=== PATIENT | male | born 1965 | race Caucasian/White ===

== ENCOUNTER 2018-02-20 09:15 | Outpatient (CLI) | payer BC, SELFPAY | END 2018-02-20 09:35 | PROVIDERS: PCP Physician Assistant Medical; Referring Provider Internal Medicine Interventional Cardiology; Visit Provider Internal Medicine Interventional Cardiology | DX: I48.91 Unspecified atrial fibrillation (principal); R00.1 Bradycardia, unspecified | CPT/HCPCS: 93005; 93010 ==

== ENCOUNTER 2018-07-03 07:42 | Day surgery (SDC) | payer BC, SELFPAY ==
--- NOTE | 2018-07-03 06:50 | W.COLOREPORT ---
Date of service: 07/03/18 Time of Service: 09:49 Colonoscopy Report Date of procedure: 07/03/18 Pre-op diagnosis general: Colon Cancer Screening Post-op diagnosis procedure note: other (polyps x2) Procedure: Colonoscopy with polypectomy by cold forceps Surgeon: Lucero Medina Anesthesia proc note operative: other (General/ ASA 2/ Elma Angel CRNA) Estimated blood loss (mL): 3 Pathology: other (descending polyp and sigmoid polyp) Complications: None Disposition: same day Indications: Mr. Sandhu is a pleasant 53 year old male seen in the office for a screening colonoscopy. He has no family history and denies any issues. Risks, benefits and complications have been reviewed. Complications include but are not limited to bleeding, pain, perforation, missed small lesion/polyp, sore throat, aspiration and adverse reaction to the medications. Questions were entertained and answered to their satisfaction and they wished to proceed. No guarantees were given or implied. Prep: Miralax/Dulcolax Procedure Start Time: :49 Procedure End Time: 10:27 Retraction Time: 24 minutes Findings: There were 2 sessile polyps. One in the descedning colon right at the splenic flexure and one in the sigmoid colon. Procedure Description: After informed consent was obtained the patient was taken to the procedure room and placed in a left decubitous position. Monitors were applied and a time out was done. The patients name, date of , procedure, allergies to medications and metal in their body was reviewed. The patient was then sedated. Once sedated and comfortable a rectal exam was done. External exam was normal. Internal exam revealed a normal sphincter tone and no palpable masses. The prostate was smooth. The scope was then introduced and retro-flexed. No internal hemorrhoids were identified. No polyps or masses were noted. The scope was then advanced to the cecum without difficulty. The TI and appendiceal orifice were identified. The prep was adequate. There was some bile stained mucus and some fiber that had to washed off with saline. 1 Liter of saline was used. The scope was then slowly retracted over 24 minutes back into the rectum. Polyps were removed in the descedning colon at the splenic flexure and in the distal sigmoid colon. The scope was removed and the patient was woken up and taken back to Same day surgery in stable condition. The patient tolerated the procedure well and there were no immediate complications. Follow up: The patient should follow up in 3-5 years unless they develop changes in bowel habits or other new gastrointestinal complaints.
--- NOTE | 2018-07-03 06:52 | W.PM.DSUDISC ---
Discharge Plan Disposition Patient Disposition: HOME Condition: Good Discharge Details Reason For Visit: Colon Cancer Screening Attending Provider: Lucero Medina Primary Care Provider: Óscar Patel Home Meds and New Rx's Prescriptions: Continued multivitamin 1 EACH capsule 1 tab PO DAILY RF: 0 Discontinued bisacodyl [Dulcolax (bisacodyl)] 5 mg tablet,delayed release (DR/EC) 5 mg PO ONCE Qty: 4 RF: 0 polyethylene glycol 3350 17 gram/dose powder 238 g PO ONCE Qty: 238 RF: 0 Discharge Instructions Instructions: Colonoscopy (DC), Colorectal Polyps (DC) Additional Instructions: Findings: 2 small polyps Follow up: 3-5 years Please call if you develop: fevers >101.5 Nausea or Vomiting Abdominal pain that is not transient DAY SURGERY UNIT POST COLONOSCOPY INSTRUCTIONS 1. Because there will be medication in your system for the next 24 hours, you may feel a little sleepy. Your coordination will be affected. Therefore: a. Do not drive or operate dangerous equipment for 24 hours. b. Do not drink alcohol beverages for 24 hours (not even beer). c. Plan to go home and rest for the day. 2. Generally there are no restrictions on your activity after a day or so has gone by, but you may feel a bit fatigued for a few days. 3 After you arrive home you may have a light meal and return to a normal diet as you can tolerate it without feeling sick to your stomach. 4. After surgery, you may feel pain or discomfort. This should be only transient, but if it persists please contact your doctor. 5. If there are any questions regarding the findings of your procedure, please feel free to contact your doctor. 6. If you are unable to contact your doctor with a problem, contact the hospital at [phone]. 7. Continue all your regular medications unless directed otherwise. I understand the above instructions and have no questions. Signature of Patient or Responsible Adult Escort Date/Time Name of Responsible Adult Escort Signature of Nurse Date/Time Activity:: Activity as Tolerated Diet:: As Tolerated Discharge Orders Discharge Orders: Discharge Order (Routine); Ordered 07/03/18 Ordered By: Lucero Medina DS: Diagnosis Discharge Diagnosis (1) S/P colonoscopy: Status: Acute (2) Colorectal polyps: Status: Acute
[2018-07-03 08:31] VITALS: BP 117/82; PULSE 73; RESP 16; TEMP 36.1; O2SAT 97
[2018-07-03] MEDS: Lactated Ringers 1,000 ML 80 ML IV (08:45)
--- NOTE | 2018-07-03 10:14 | BOWEL_PTH ---
PATIENT: Александр Sandhu LOC: [facility] U#:[id number] AGE/SX: 53/M ROOM: RE07/03/[address]: Lucero Medina MD : [id number] BED: DIS: 07/03/2018 SPEC #: [id number] RECD: 07/03/18 11:24 STATUS: SWATHI REQ #: [id number] KRUPA: 07/03/18 10:[address]: Lucero Medina DEPT: Surgical Specimen RECD BY: Maria Isabel Virgen ENTERED: 07/03/18 11:25 SP TYPE: Bowel OTHR DR: Óscar Patel DO Tissues: 1 - BIOPSY BOWEL 2 - BIOPSY BOWEL Procedures: GROSS AND MICRO LEVEL 4 Comments: [id number]
[2018-07-03 11:00] VITALS: BP 116/73; PULSE 68; RESP 16; TEMP 35.7; O2SAT 98
== END 2018-07-03 11:31 | disposition home or self-care (01) ==
LOC: SUR 07:42
PROVIDERS: PCP Family Medicine; Visit Provider Surgery
PROC: 0DJD8ZZ Inspection of Lower Intestinal Tract, Via Natural or Artificial Opening Endoscopic (ICD-10-PCS; CPT 45378; principal; 2018-07-03 09:00)
DX: Z12.11 Encounter for screening for malignant neoplasm of colon (principal); D12.4 Benign neoplasm of descending colon; Z80.0 Family history of malignant neoplasm of digestive organs
CPT/HCPCS: 45380; 88305

== ENCOUNTER 2019-01-18 11:30 | Emergency (ER) | payer BC, SELFPAY ==
[2019-01-18 11:34] VITALS: BP 128/74; PULSE 82; RESP 18; TEMP 36.6; O2SAT 97
--- NOTE | 2019-01-18 12:01 | W.ED.GENAD ---
Discharge Plan Disposition Patient Disposition: AGAINST MEDICAL ADVICE Condition: Stable Discharge Details Chief Complaint: Chest Pain Clinical Impression: Chest pain Primary Care Provider: Óscar Patel ED Provider: Danyel Andre Home Meds and New Rx's Prescriptions: No Action desonide 0.05 % cream 1 applic TP BID PRN (Reason: skin irritation) Qty: 60 RF: 3 cyclobenzaprine 7.5 mg tablet 7.5 mg PO TID PRN (Reason: muscle spasm) Qty: 90 RF: 0 multivitamin 1 EACH capsule 1 tab PO DAILY RF: 0 Discharge Instructions Instructions: Chest Pain (ED) Additional Instructions: Due to you choosing to leave before full examination is complete it is highly recommended that you follow-up with your primary care provider for further examination and testing as needed or warranted. If any abnormalities come up on blood work we will contact you and feel free to return to the emergency department immediately for any new or worsening symptoms or further concerns or if you change your mind and do desire complete work-up and evaluation of your chest pain. Referrals: Óscar Patel DO [Primary Care Provider] - (As soon as possible for further evaluation of your chest pressure/pain) Discharge Data Discharge Date/Time-TO BE ENTERED AT DEPARTURE: 01/18/19 12:19 Medical Decision Making Patient presenting to the emergency department for chief complaint of chest pressure. Patient reports that for the past week he has been under a lot of stress and today was at his counselor's office whom stated he looked pale and recommended he come into the emergency department. Patient denies any other associated symptoms, radiation of pain or exacerbating symptoms. He does state that he felt some dizziness yesterday morning but is completely resolved and gone away. Physical exam is unremarkable. Plan to check labs, EKG, and continue to monitor patient. EKG reviewed with Dr. Herman Tejeda and shows nonspecific T wave flattening in 1, aVL, and lead III but otherwise nondiagnostic EKG, does not meet STEMI criteria, sinus rhythm, 83, normal axis. Prior to full evaluation and discussing EKG with patient patient states that he wants to leave AGAINST MEDICAL ADVICE. Patient does not want to stay for results of blood work or repeat troponin and he states he feels okay. Thoroughly discussed with patient and significant other that were in the room that I cannot eliminate life-threatening possibilities of patient's chest discomfort and that leaving prior to full work-up may lead to both or disability if he decides to go home and wait for labs which she is requesting us to call him with any abnormalities. Patient signed out AGAINST MEDICAL ADVICE. Patient was fully competent, states understanding of risk factors, significant other was present, patient is not altered and is alert and oriented x4. Patient was encouraged to follow-up with primary care for further evaluation of his complaint if he chooses to perform this on an outpatient basis. HPI General Mode of arrival: ambulatory. Date/Time Provider Initiated Documentation: 01/18/19 11:41. Limitations to Documentation: no limitations. Information obtained by: patient, family and RN notes reviewed. History of Present Illness 53 year old M presents to the emergency department with the chief complaint of chest pressure , described as mild, with intensity rated at 5. Quality is described as other (pressure), and is localized to the chest. Patient reports no radiation. Patient started experiencing this week(s) (1) and it has been constant. No relieving factors improve symptom(s), No exacerbating factors reported . Patient did receive the following treatments prior to arrival, none Related Data Home Medications Medication Instructions Recorded Confirmed multivitamin 1 tab PO DAILY 07/18/17 01/18/19 desonide 0.05 % topical cream 1 applic TP BID PRN #60 gm 07/24/18 01/18/19 cyclobenzaprine 7.5 mg tablet 7.5 mg PO TID PRN #90 tab 11/27/18 01/18/19 Previous Rx's Medication Instructions Recorded desonide 0.05 % topical cream 1 applic TP BID PRN #60 gm 07/24/18 cyclobenzaprine 7.5 mg tablet 7.5 mg PO TID PRN #90 tab 11/27/18 Allergies Allergy/AdvReac Type Severity Reaction Status Date / Time fluconazole [From Diflucan] Allergy Intermediate Skin Rash Verified 01/18/19 11:40 Sulfa (Sulfonamide Allergy swells up Verified 01/18/19 11:40 Antibiotics) General Stated Complaint: Chest Pain JENNYFER: 2 Review of Systems Constitutional Constitutional: Denies chills, Reports difficulty sleeping and Denies fever(s) Cardiovascular Cardiovascular: Reports as per HPI, Reports chest pain, Denies chest pain with activity, Denies irregular heart rhythm, Denies palpitations and Denies dyspnea Respiratory Respiratory: Denies cough, Denies hemoptysis and Denies dyspnea Gastrointestinal Gastrointestinal: Denies abdominal pain, Denies nausea and Denies vomiting Psychiatric Psychiatric: Reports anxiety and Reports other (work stress) Endocrine Endocrine: Denies palpitations PFSH Medical History Atrial fibrillation with tachycardic ventricular rate (Acute) Colorectal polyps (Acute ~07/03/18) 07/04, one tubular adenoma, repeat in 5-10 years Hematospermia (Acute 05/06/17) Surgical History H/O vasectomy (Acute) History of back surgery (Acute ~2005) History of esophagogastroduodenoscopy (EGD) (Chronic) History of hand surgery (Acute) S/P ablation of atrial fibrillation (Acute) S/P colonoscopy (Acute ~07/03/18) Family History Mother Thyroid disease Father Heart disease takes eliquis Social History Smoking/Tobacco Use Status: Current every day Tobacco Type: e-cigarettes Smokeless tobacco user: dissolvable tobacco Alcohol Intake: current Alcohol Intake frequency: 0-2 drinks per day Alcohol type: wine Drug use: Occasionally Substance use type: marijuana Household members: spouse and family Housing: house Number of Children: 2 Communication Needs: None Education Level: college Do you need help understanding health information?: Never 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 Sexually active: Yes Do you think of yourself as: straight/heterosexual Current gender identity: male What is your relationship status?: Panel score (0-1 are the most socially isolated patients): 1 What type of physical activity do you participate in: none Special rhea needs: No Seatbelt use: always Drive intox or ride w/intox sprinkling truck driver: No Working smoke detector in home: Yes Fire extinguisher in home: Yes Carbon monox detector in home: Yes Do you feel safe at home: Yes Do you feel safe in your relationship?: Yes Exam Const General: cooperative, healthy appearing, comfortable, no acute distress, not diaphoretic and not ill appearing Nutritional Appearance: average body habitus Orientation: alert, awake and oriented x3 Limitations: mental status not altered Neck Neck: normal visual inspection, full ROM, trachea midline, supple and no anterior neck swelling Thyroid: thyroid normal Carotids: normal carotid upstroke and no bruits Chest Chest: normal inspection of the chest Resp Effort & Inspection: normal respiratory effort and able to speak in complete sentences Auscultation: clear to auscultation bilaterally Cardio Jugular venous pressure: no JVD Palpation: normal PMI Rate: regular rate Rhythm: regular rhythm Heart Sounds: S1 normal, S2 normal, no click, no gallops, no murmurs and no rubs Bruits: no abdominal aortic bruits and no carotid bruits Pulses: radial pulses present bilaterally 2+ and posterior tibial pulses present bilaterally 2+ GI Inspection: normal to inspection Palpation: soft, no aortic enlargement, no pulsatile masses and nontender Auscultation: normal bowel sounds Skin General skin exam: no rashes or lesions noted Neuro General: alert, awake, oriented x3, tone normal and moves all extremities Extrem General: normal capillary refill and no pedal edema Course Vital Signs Vital signs: Vital Signs Temperature 36.6 C 01/18/19 11:34 Pulse 82 01/18/19 11:34 Respiratory Rate 18 01/18/19 11:34 Blood Pressure 128/74 01/18/19 11:34 Pulse Oximetry 97 01/18/19 11:34 Temperature 36.6 C 01/18/19 11:34 Temperature Source Skin 01/18/19 11:34 Pulse 82 01/18/19 11:34 Respiratory Rate 18 01/18/19 11:34 Respiratory Effort Non-Labored 01/18/19 11:38 Blood Pressure 128/74 01/18/19 11:34 Blood Pressure Position Sitting 01/18/19 11:34 Pulse Oximetry 97 01/18/19 11:34 Oxygen Delivery Method Room Air 01/18/19 11:34 Oxygen Flow Rate 0 01/18/19 11:34 Pain Level 5 01/18/19 11:34
[2019-01-18 12:05] VITALS: RESP 18
[2019-01-18 12:19] VITALS: RESP 18
[2019-01-18 12:23] LABS: Abs Immature Grans 0.01 k/cumm (0.0-0.09); Absolute Basophil Count 0.02 k/cumm (0.0-0.2); Absolute Eosinophil Count 0.09 k/cumm (0.0-0.7); Absolute Monocyte Count 0.55 k/cumm (0.11-0.7); Absolute Neutrophil Count 4.14 k/cumm (1.2-6.7); Basophils % 0.3; Eosinophils % 1.4; HCT 43.5 % (40.0-50.0); HGB 14.8 g/dL (13.5-17.5); Immature Grans % 0.2; Lymphocytes % 26.1; Mean Corpuscular Hemoglobin 31.2 pg (27.0-33.0); Mean Corpuscular Volume 91.8 fL (80-95); Mean Platelet Volume 10.8 fL (8.0-11.0); Monocytes % 8.4; Neutrophils % 63.6; Platelet Count 164 x1000/uL (130-400); RBC 4.74 m/cumm (4.50-6.00); RBC Distribution Width 13.6 % (11.8-14.1); White Blood Cell Count 6.51 k/cumm (4.4-10.8)
[2019-01-18 12:39] LABS: ALT 82 U/L (16-63); AST 24 U/L (15-37); Albumin 4.1 g/dL (3.4-5.0); Alkaline Phosphatase 90 U/L (46-116); Anion Gap 9.6 mmol/L (3-11); BUN 14 mg/dL (7-18); Bilirubin, Total 0.4 mg/dL (0.2-1.0); CO2 27.4 mmol/L (21.0-32.0); CREATININE 1.06 mg/dL (0.70-1.30); Calcium 8.9 mg/dL (8.5-10.1); Chloride 104 mmol/L (98-107); Glucose 107 mg/dL (70-100); Magnesium 1.9 mg/dL (1.8-2.4); Potassium 3.9 mmol/L (3.5-5.1); Sodium 141 mmol/L (136-145); Total Protein 7.6 g/dL (6.4-8.2)
[2019-01-18 12:45] LABS: Troponin I < 0.05 ng/mL (0.00-0.06)
== END 2019-01-18 12:19 | disposition left against medical advice (07) ==
LOC: ER 12:27
PROVIDERS: Emergency Provider Nurse Practitioner Family; PCP Family Medicine
DX: R07.9 Chest pain, unspecified (principal); Z53.29 Procedure and treatment not carried out because of patient's decision for other reasons
CPT/HCPCS: 36415; 80053; 93005; 99284; 83735; 84484; 85025; 93010

== ENCOUNTER 2019-08-13 12:01 | Outpatient (CLI) | payer BC, SELFPAY ==
[2019-08-13 19:27] LABS: COVID-19 RT-PCR UVMMC Result Negative (Negative)
== END 2019-08-13 12:21 ==
PROVIDERS: PCP Family Medicine; Visit Provider Family Medicine
DX: R50.9 Fever, unspecified (principal)
CPT/HCPCS: U0003

== ENCOUNTER 2019-10-11 01:56 | Outpatient (CLI) | payer BC, SELFPAY ==
--- NOTE | 2019-10-11 14:45 | DI.US_ITS ---
EXAM: US RENAL CLINICAL HISTORY: Renal colic, r/o hydronephrosis n23 renal colic TECHNIQUE: Ultrasound performed using standard protocol. COMPARISON: US Cardiac from 03/09/2017 FINDINGS: Renal ultrasound was performed according to the usual protocol. Incidental note is made of increased hepatic echogenicity consistent with hepatic steatosis. The kidneys are normal in size and shape and there is no evidence of a renal mass, hydronephrosis, or nephrolithiasis. Pre and postvoid urinary bladder volume measurements are 592 cc and 73 cc respecti vely. Right and left ureteral jets are visualized and the urinary bladder is unremarkable in appeara nce. Prostatic volume is estimated at 29 cc. IMPRESSION: Negative renal ultrasound. Postvoid residual volume of the bladder 73 cc. DATA REPOSITORY:
== END 2019-10-11 02:16 ==
PROVIDERS: PCP Family Medicine; Visit Provider Family Medicine
DX: N23 Unspecified renal colic (principal); K76.0 Fatty (change of) liver, not elsewhere classified
CPT/HCPCS: 76770

== ENCOUNTER 2020-02-26 07:38 | Outpatient (CLI) | payer BC, SELFPAY ==
[2020-03-01 19:24] LABS: Patient Race White; SARS-CoV-2 RNA Undetected (Undetected); SARS-CoV-2 Specimen Source Nasal
== END 2020-02-26 07:58 ==
PROVIDERS: PCP Family Medicine; Visit Provider Family Medicine
DX: R53.81 Other malaise (principal)
CPT/HCPCS: U0003

== ENCOUNTER 2020-05-07 03:41 | Outpatient (CLI) | payer BC, SELFPAY ==
[2020-05-08 18:28] LABS: COVID-19 RT-PCR Result NEGATIVE (Negative)
== END 2020-05-07 04:01 ==
PROVIDERS: PCP Family Medicine; Visit Provider Family Medicine
DX: Z11.52 Encounter for screening for COVID-19 (principal)
CPT/HCPCS: U0003

== ENCOUNTER 2022-04-16 09:05 | Outpatient (CLI) | payer BC, SELFPAY ==
--- NOTE | 2022-04-16 09:00 | RT.EKG_ITS ---
APPROVED REPORT Exam: Resting ECG Reason for Exam: evaluation of cardiac rhythm Patient Location: O HR:105 bpm ECG Measurements Heart Rate 105 AXIS NH 179 P 63 QRSd 97 QRS 49 QT 327 T -4 QTc 433 Conclusion Sinus rhythm Low voltage, extremity leads...all extremity leads <0.5mV
== END 2022-04-16 09:06 | disposition home or self-care (01) ==
LOC: DI.CARD 09:06
PROVIDERS: PCP Family Medicine; Visit Provider Internal Medicine Cardiovascular Disease
DX: R00.2 Palpitations (principal); I48.91 Unspecified atrial fibrillation
CPT/HCPCS: 93010

== ENCOUNTER 2022-06-15 20:07 | Emergency (ER) | payer BC, SELFPAY ==
[2022-06-15 20:10] VITALS: BP 137/81; PULSE 97; RESP 20; TEMP 36.7; O2SAT 97
--- NOTE | 2022-06-15 20:30 | DI.CT_ITS ---
Exam(s) CT RENAL COLIC WO EXAM: CT RENAL COLIC WO CLINICAL HISTORY: left flank pain, r/o stone. TECHNIQUE: Imaging Protocol: Axial computed tomography images with coronal and sagittal reformatted images were created and reviewed. COMPARISON: No exams were available for comparison FINDINGS: ABDOMEN: Lung Bases: Normal where visualized. Liver: There is diffuse decreased attenuation of the liver consistent with fatty infiltration. No me asurable mass. The liver is enlarged. Gallbladder and biliary tract: No radiodense calculus or biliary ductal dilation. Pancreas: Normal density, no abnormal calcifications or inflammatory process. Spleen: Normal. Kidneys: Normal size, contour and axis.There is a 3 mm transverse by 7 mm long stone in the proximal left ureter causing mild hydronephrosis. No masses seen. Adrenal glands: No mass is seen. Lymph nodes: Within normal limits. Abdominal Aorta: Abdominal portion non-dilated. Mild atherosclerosis. PELVIS: Bladder:Symmetric distention, no gross wall thickening. Bowel: No obstruction or bowel wall thickening. No evidence of appendicitis. Peritoneal cavity: No ascites, collection or mesenteric inflammatory response. No free air. Reproductive organs: Unremarkable as visualized. Bones: Within normal limits. Soft Tissues: Within normal limits. IMPRESSION: 3 mm x 7 mm stone in the proximal left ureter causing mild hydronephrosis. RADIATION DOSE DELIVERED: Total DLP DATA REPOSITORY: All CT scans at this facility are submitted to the National Radiology Data Registry (NRDR) Dose Index Registry (DIR) with the [employer] (ACR). RADIATION OPTIMIZATION: All CT scans at this facility use at least one of these dose optimization te chniques: automated exposure control; mA and/or kV adjustment per patient size (includes targeted exa ms where dose is matched to clinical indication); or iterative reconstruction.
[2022-06-15 20:45] LABS: Abs Immature Grans 0.02 10^3/uL (0.0-0.06); Absolute Basophil Count 0.05 10^3/uL (0.0-0.2); Absolute Eosinophil Count 0.14 10^3/uL (0.0-0.7); Absolute Lymphocyte Count 2.73 10^3/uL (1.2-3.4); Absolute Monocyte Count 0.44 10^3/uL (0.1-0.8); Absolute Neutrophil Count 5.09 10^3/uL (1.2-6.7); Basophils % 0.6; Eosinophils % 1.7; HCT 42.9 % (40.0-50.0); HGB 14.9 g/dL (13.5-17.5); Immature Grans % 0.2; Lymphocytes % 32.2; MCH 31.8 pg (27.0-33.0); MCHC 34.7 % (32.0-36.0); MCV 92 fL (80-95); MPV 10.6 fL (8.0-11.0); Monocytes % 5.2; Neutrophils % 60.1; Platelet Count 153 10^3/uL (130-400); RBC 4.69 10^6/uL (4.36-5.78); RDW 12.9 % (11.8-14.1); WBC 8.47 10^3/uL (4.4-10.8)
[2022-06-15] MEDS: Ketorolac 15 MG/ML VIAL IVP (20:50)
[2022-06-15 21:01] LABS: ALT 108 U/L (16-63); AST 42 U/L (15-37); Albumin 4.2 g/dL (3.4-5.0); Alkaline Phosphatase 88 U/L (46-116); Anion Gap 9.7 mmol/L (3-11); BUN 18 mg/dL (7-18); Bilirubin, Total 0.4 mg/dL (0.2-1.0); CO2 26.3 mmol/L (21.0-32.0); CREATININE 1.3 mg/dL (0.70-1.30); Chloride 104 mmol/L (98-107); Estimated GFR 64.88 (mL/min/1.73m2); Glucose 134 mg/dL (74-106); Potassium 3.8 mmol/L (3.5-5.1); Sodium 140 mmol/L (136-145); Total Protein 7.7 g/dL (6.4-8.2)
[2022-06-15] MEDS: Normal Saline 1,000 ML 1000 ML IV (21:02)
[2022-06-15] MEDS: Tamsulosin 0.4 MG CAPCR PO ×2 (21:02→22:08)
--- NOTE | 2022-06-15 21:06 | ED.GENADUL_ITS ---
Discharge Plan Disposition Patient Disposition: Home Condition: Good Discharge Details Clinical Impression: Kidney stone on left side Primary Care Provider: Óscar Patel ED Provider: Satnam Granger Home Meds and New Rx's Prescriptions: New ketorolac 10 mg tablet 10 mg PO TID PRN5 Days Qty: 20 0RF tamsulosin [Flomax] 0.4 mg capsule 0.4 mg PO DAILY Qty: 7 0RF No Action multivitamin 1 EACH capsule 1 tab PO DAILY Discharge Instructions Instructions: Kidney Stones (ED) Additional Instructions: At this time you have a 3 x 7 kidney stone. Please continue to drink plenty of fluids, stay well-hydrated, please take the Flomax and the Toradol as directed. They have been sent to your pharmacy on file. You can also take 1000 mg of Tylenol every 6 hours as needed for pain. Please take the Zofran that has been given to you as needed for nausea. Please take the Fayette tablets/pain medication only as needed for breakthrough pain. Please continue to strain your urine to look for the stone. If you notice that the stone still has not passed over the next 3 to 4 days, you may need prompt reassessment and blood work to evaluate your kidney function. If you notice any worsening of your symptoms, or any new symptoms such as vomiting, diarrhea, fever, chills, shortness of breath, chest pain, numbness, weakness, or fainting , please return immediately to the emergency department for reevaluation. Please follow up with your primary care provider as soon as possible for reassessment and reevaluation. As always, it was a pleasure participating in your medical care today. Referrals: Óscar Patel DO [Primary Care Provider] - Medical Decision Making 57-year-old male with a past medical history of atrial fibrillation status post ablation, not currently on any anticoagulants, who presents today for evaluation of left flank pain. Patient states that symptoms began about 2 hours ago. Pain eventually worsened to the point where it caused nausea and vomiting. It seems to come and go in severity. He denies any fever or chills. No personal history of kidney stones. He denies any numbness or tingling. No hematuria. Pain is localized in the left flank. No radiation to the genitals a t this point. No previous abdominal surgeries otherwise. No other complaints at this time. Patient has not taken any medications for the pain. Exam demonstrates a well-appearing male, in no flank or CVA tenderness, no reproducible abdominal tenderness, no genital tenderness. Patient symptoms are concerning for urolithiasis. We will treat with Toradol and Flomax, we will get a CAT scan to evaluate for stone, monitor closely and reassess. 10:30 PM Laboratory work-up has returned, no white count bandemia or left shift, electrolytes and renal function notably stable. Urinalysis shows blood but no evidence of infection. CT scan shows a 7 x 3 mm stone, with mild left hydronephrosis. On reassessment patient is feeling much better but still has mild ache on the left. Flomax Toradol was given as well as Zofran. Patient is able to tolerate p.o. Discussed options of admission versus discharge with close follow-up or return if worsening symptoms, at this time patient notably elects for continued home treatment. He does not want to be admitted currently. Patient will be discharged home with a small bottle of Fayette, Zofran, Flomax for home use. Recommend close follow-up with his PCP for reassessment. Discussed red flags which would be concerning for worsening obstruction or failure to pass. is at bedside. I have extensively reviewed the treatment plan and discharge instructions with the patient and their family. I have addressed all patient concerns at this time. The patient and family was made aware of what symptoms to monitor for that would warrant a return to the emergency department. Discussed the plan with the patient and family, they demonstrate verbal understanding and agreement with our assessment and plan at this time. The documentation in this chart was dictated using [employer] dictation software. Please excuse any dictation errors. FINDINGS: Liver: Hepatomegaly and diffuse fatty infiltration. No mass. Gallbladder and bile ducts: Normal. No calcified stones. No ductal dilation. Pancreas: Normal. No ductal dilation. Spleen: Normal. No splenomegaly. Adrenal glands: Normal. No mass. Kidneys and ureters: Left UPJ calculus measuring 7x3 mm with mild left hydronephrosis coronal image 49 Stomach and bowel: Unremarkable. No obstruction. No mucosal thickening. Appendix: No evidence of appendicitis. Intraperitoneal space: Unremarkable. No free air. No significant fluid collection. Vasculature: Unremarkable. No abdominal aortic aneurysm. Lymph nodes: Unremarkable. No enlarged lymph nodes. Urinary bladder: Unremarkable as visualized. Reproductive: Unremarkable as visualized. Bones/joints: Unremarkable. No acute fracture. Soft tissues: Tiny fat containing periumbilical hernia. IMPRESSION: Mild left obstructive uropathy secondary to a left UPJ calculus measuring 7 x 3 mm Thank you for allowing us to participate in the care of your patient. Dictated and Authenticated by: Michael Giraldo MD 06/15/2022 9:27 PM Eastern Time ([place] & [place]) HPI General Date/Time Provider Initiated Documentation: 06/15/22 20:18 . HPI Narrative: 57-year-old male with a past medical history of atrial fibrillation status post ablation, not currently on any anticoagulants, who presents today for evaluation of left flank pain. Patient states that symptoms began about 2 hours ago. Pain eventually worsened to the point where it caused nausea and vomiting. It seems to come and go in severity. He denies any fever or chills. No personal history of kidney stones. He denies any numbness or tingling. No hematuria. Pain is localized in the left flank. No radiation to the genitals at this point. No previous abdominal surgeries otherwise. No other complaints at this time. Patient has not taken any medications for the pain. Related Data Home Medications Medication Instructions Recorded Confirmed multivitamin 1 tab PO DAILY 07/18/17 04/16/22 ketorolac 10 mg tablet 10 mg PO TID PRN 5 days #20 tabs 06/15/22 tamsulosin 0.4 mg capsule (Flomax) 0.4 mg PO DAILY #7 caps 06/15/22 Previous Rx's Medication Instructions Recorded ketorolac 10 mg tablet 10 mg PO TID PRN 5 days #20 tabs 06/15/22 tamsulosin 0.4 mg capsule (Flomax) 0.4 mg PO DAILY #7 caps 06/15/22 Allergies Allergy/AdvReac Type Severity Reaction Status Date / Time fluconazole [From Diflucan] Allergy Intermediate Skin Rash Verified 04/16/22 10:02 Sulfa (Sulfonamide Allergy swells up Verified 04/16/22 10:02 Antibiotics) General Stated Complaint: FlankPain JENNYFER: 3 Review of Systems All systems reviewed & are unremarkable except as noted in HPI and below PFSH All Active Problems (Updated 06/15/22 @ 22:33 by Satnam Granger DO) Kidney stone on left side (Acute) Intertrigo (Acute) Cellulitis (Acute) Blepharitis (Chronic) Colorectal polyps (Acute ~07/03/18) 07/04, one tubular adenoma, repeat in 5-10 years Obstructive sleep apnea hypopnea, mild (Chronic ~10/2016) perfers oral appliance vs C-PAP Atrial fibrillation (Chronic ~02/2017) Dr. 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 Garcia data capture clerk Heart palpitations (Chronic) Dr. Garcia data capture clerk S/P colonoscopy (Acute ~07/03/18) Hematospermia (Acute 05/06/17) Medical History (Updated 06/15/22 @ 22:33 by Satnam Granger DO) Atrial fibrillation with tachycardic ventricular rate Surgical History H/O vasectomy History of back surgery (~2005) History of esophagogastroduodenoscopy (EGD) History of hand surgery S/P ablation of atrial fibrillation (~01/2018) Family History Mother Thyroid disease Father Heart disease takes eliquis Social History Smoking/Tobacco Use Status: Current every day Tobacco Type: e-cigarettes Smokeless tobacco user: dissolvable tobacco Smoking risk assessment performed?: Yes Alcohol Intake: current Alcohol Intake frequency: 0-2 drinks per day Alcohol type: wine Drug use: Occasionally Substance use type: marijuana Household members: spouse and family Housing: house Number of Children: 2 Communication Needs: None Education Level: college Do you need help understanding health information?: Never 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 Sexually active: Yes Do you think of yourself as: straight/heterosexual Current gender identity: male What is your relationship status?: Panel score (0-1 are the most socially isolated patients): 1 What type of physical activity do you participate in: none Special rhea needs: No Seatbelt use: always Drive intox or ride w/intox 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 3.ENT: Atraumatic external nose and ears. Moist MM. Neck: Symmetric, trachea midline, No thyromegaly. 4.CVS: +S1/S2, No murmurs or gallops. Peripheral pulses 2+ and equal in all extremities. Brisk capillary refill in all extremities. 5.RESP: Unlabored respiratory effort. Clear to auscultation bilaterally. No wheezes rales or rhonchi 6.GI: Soft, Nontender/Nondistended, No hepatosplenomegaly. No guarding or rebound. No pain to McBurney's point, negative Anna sign, no CVA tenderness. No genital pain or tenderness on palpation. 7.MSK: Normocephalic/Atraumatic, Extremities w/o deformity or ttp No cyanosis or clubbing, Normal movement of all extremities 8.Skin: Warm, Dry. No rashes or lesions. 9.Neuro: call center nurse II-XII grossly intact. Sensation grossly intact, no focal n eurologic deficits. 10.Psych: (AAO) x3. Appropriate mood and affect Course Vital Signs Vital signs: Vital Signs Temperature 36.7 C 06/15/22 20:10 Pulse 97 H 06/15/22 20:10 Respiratory Rate 20 06/15/22 20:10 Blood Pressure 137/81 06/15/22 20:10 Pulse Oximetry 97 06/15/22 20:10 Temperature 36.7 C 06/15/22 20:10 Temperature Source Oral 06/15/22 20:10 Pulse 97 H 06/15/22 20:10 Respiratory Rate 20 06/15/22 20:10 Blood Pressure 137/81 06/15/22 20:10 Blood Pressure Position Sitting 06/15/22 20:10 Pulse Oximetry 97 06/15/22 20:10 Oxygen Delivery Method Room Air 06/15/22 20:10 Oxygen Flow Rate 0 06/15/22 20:10 Pain Level 2 06/15/22 20:10 Lab/Test Results Lab/Test Results: Laboratory Tests Range/Units 06/15/22 20:30 WBC (4.4-10.8) 10^3/uL 8.47 RBC (4.36-5.78) 10^6/uL 4.69 Hgb (13.5-17.5) g/dL 14.9 Hct (40.0-50.0) % 42.9 MCV (80-95) fL 92 MCH (27.0-33.0) pg 31.8 MCHC (32.0-36.0) % 34.7 RDW (11.8-14.1) % 12.9 Plt Count (130-400) 10^3/uL 153 MPV (8.0-11.0) fL 10.6 Immature Gran % 0.2 Neutrophils % 60.1 Lymphocytes % 32.2 Monocytes % 5.2 Eosinophils % 1.7 Basophils % 0.6 Nucleated RBC % (0.0-0.3) % 0.0 Absolute Neutrophils (1.2-6.7) 10^3/uL 5.09 Absolute Lymphocytes (1.2-3.4) 10^3/uL 2.73 Absolute Monocytes (0.1-0.8) 10^3/uL 0.44 Absolute Eosinophils (0.0-0.7) 10^3/uL 0.14 Absolute Basophils (0.0-0.2) 10^3/uL 0.05
[2022-06-15] MEDS: Ondansetron 4 MG/2 ML VIAL IVP (21:26)
--- NOTE | 2022-06-15 21:27 | DI.VRAD_ITS ---
PROCEDURE INFORMATION: Exam: CT Abdomen And Pelvis Without Contrast Exam date and time: 06/15/2022 9:15 PM Age: 57 years old Clinical indication: Other: Left flank pain, R/O stone TECHNIQUE: Imaging protocol: Computed tomography of the abdomen and pelvis without contrast. Radiation optimization: All CT scans at this facility use at least one of these dose optimization techniques: automated exposure control; mA and/or kV adjustment per patient size (includes targeted exams where dose is matched to clinical indication); or iterative reconstruction. COMPARISON: US RENAL 10/11/2019 3:08 PM FINDINGS: Liver: Hepatomegaly and diffuse fatty infiltration. No mass. Gallbladder and bile ducts: Normal. No calcified stones. No ductal dilation. Pancreas: Normal. No ductal dilation. Spleen: Normal. No splenomegaly. Adrenal glands: Normal. No mass. Kidneys and ureters: Left UPJ calculus measuring 7x3 mm with mild left hydronephrosis coronal image 49 Stomach and bowel: Unremarkable. No obstruction. No mucosal thickening. Appendix: No evidence of appendicitis. Intraperitoneal space: Unremarkable. No free air. No significant fluid collection. Vasculature: Unremarkable. No abdominal aortic aneurysm. Lymph nodes: Unremarkable. No enlarged lymph nodes. Urinary bladder: Unremarkable as visualized. Reproductive: Unremarkable as visualized. Bones/joints: Unremarkable. No acute fracture. Soft tissues: Tiny fat containing periumbilical hernia. IMPRESSION: Mild left obstructive uropathy secondary to a left UPJ calculus measuring 7 x 3 mm Dictated and Authenticated by: Michael Giraldo MD. Ordering:ADOLPH Hay MD
[2022-06-15 21:42] LABS: Bilirubin Negative (Negative); Blood Large (Negative); Clarity Clear (Clear); Glucose Negative (Negative); Ketones Negative (Negative); Leukocyte Esterase Negative (Negative); Nitrite Negative (Negative); Specific Gravity >= 1.030 (1.005-1.025); Urobilinogen 0.2 mg/dL (Up to 0.2); pH 5.5 (5-8)
[2022-06-15 21:55] LABS: Bacteria Negative HPF (Negative); C & S Indicated? No; Casts Negative LPF (Negative); Crystals Negative HPF (Negative); Epithelial Cells Few HPF (Negative); Mucus Negative (Negative); Other Cells Negative (Negative); RBC 20-50 HPF (0-2); WBC 0-2 HPF (0-5)
[2022-06-15] MEDS: Ondansetron O.D.T. 4 MG TABEF, 3 TABS/BTL PO (22:42)
[2022-06-15 22:52] VITALS: PULSE 78; RESP 20
== END 2022-06-15 22:53 | disposition home or self-care (01) ==
PROVIDERS: Emergency Provider Student in an Organized Health Care Education/Training Program; PCP Family Medicine
DX: N13.2 Hydronephrosis with renal and ureteral calculous obstruction (principal); I48.91 Unspecified atrial fibrillation
CPT/HCPCS: 36415; 80053; 96361; 96374; 96375; 99284; 74176; 81003; 81015; 85025; J1885; J2405

== ENCOUNTER 2023-01-31 13:00 | Outpatient (REF) | payer BC, SELFPAY ==
--- NOTE | 2023-01-31 11:50 | TONG_PTH ---
PATIENT: Александр Sandhu LOC: [facility] U#:[id number] AGE/SX: 57/M ROOM: RE01/31/[address]: Agata Ruff : 1965 BED: DIS: 01/31/2023 SPEC #: [id number] RECD: 01/31/23 17:31 STATUS: SWATHI RELeeroy #: [id number] KRUPA: 01/31/23 11:[address]: Agata Ruff DEPT: Surgical Specimen RECD BY: Lissett Suero ENTERED: 01/31/23 17:32 SP TYPE: JOEY LEON DR: Óscar Patel DO Tissues: 1 - TONGUE BIOPSY Procedures: GROSS AND MICRO LEVEL 4 SPECIAL STAIN 1 Comments: [id number]
== END 2023-01-31 13:01 | disposition home or self-care (01) ==
LOC: LBN 13:00
PROVIDERS: PCP Family Medicine; Visit Provider Registered Nurse Maternal Newborn
DX: R23.4 Changes in skin texture (principal); B37.0 Candidal stomatitis
CPT/HCPCS: 88305; 88312

== ENCOUNTER 2023-04-30 11:50 | Emergency (ER) | payer BC, SELFPAY ==
--- NOTE | 2023-04-30 11:57 | W.ED.GENAD ---
HPI General JENNYFER: 3 Date/Time Provider Initiated Documentation: 04/30/23 11:57. HPI Narrative: MDM This is an overall very well-appearing normothermic and not tachycardic 58-year-old male with left flank pain, history of ureterolithiasis and presentation concerning for recurrent ureterolithiasis. Patient symptoms began after coughing so rib fracture is also in the differential. No chest pain to suggest ACS. Patient did vomit once last night but in the absence of chest pain my suspicion for esophageal rupture is low. No pain out of proportion to suggest necrotizing soft tissue infection. No rash to suggest zoster. No erythema to suggest cellulitis. Patient is not short of breath nor tachycardic nor hypoxic so my suspicion is low for PE. Patient has been tolerating p.o. so no suspicion for acute electrolyte abnormalities is low. As result I do not feel that the patient requires laboratory assessment. No fever to suggest pneumonia. Not hypotensive nor a dialysis patient so doubt tamponade. If patient has an abnormal chest x-ray will consider CT scan given concern for ureterolithiasis. No dysuria no frequency so if patient does not have ureterallithiasis will defer urinalysis. No signs of hernia on exam. 1:15 PM Chest x-ray showed rounded density in the left paraspinal location at level of C7. Radiology noted this may represent focal osteophyte or benign bone lesion. Will proceed to CT scan. 2:[address] chest showed degenerative changes in the spine consistent with DISH. No acute abnormalities. CT abdomen pelvis showing no hydronephrosis nor nephrolithiasis. Patient and I discussed DISH. I prescribed PT and advised PCP fu. We discussed return to the ED for worsening pain. We also discussed return if patient developed a rash on his flank as his presentation could represent early zoster. In the absence of rash and vesicles will defer acyclovir at this point. Chronic conditions affecting the care of the patient: N/A History obtained from an outside historian: N/A External record review: No acute cardiopulmonary process [Diagnostic interpretations performed by me: Per my independent interpretation chest x-ray shows: No acute cardiopulmonary process Medications: Benzonatate Social determinants of health affecting disposition: N/A Management discussed with: N/A Treatment/interventions considered: N/A Response to therapies provided:N/A HPI This is a 58-year-old male arrives emergency department via private vehicle in the setting of left flank pain. He was reportedly coughing last night and woke up feeling pain in his left flank. He reports a remote history of ureterolithiasis. He says that he felt a protruding sensation and felt as if he had a hernia. This was from his left flank. He rarely drinks ethanol occasionally and rarely uses marijuana. He vapes tobacco. He has no history of falling. He denies abdominal pain chest pain fevers chills. No surgery to his abdomen. He has a history of hiatal hernia. No dysuria no frequency. No nausea nor voimiting. Exam General: Well-appearing in no acute distress speaking in complete sentences. Head: Normocephalic, atraumatic. Eye: Extraocular eye movements intact. No conjunctival injection. No scleral icterus. Ear, nose, mouth, throat: Grossly normal inspection. Normal voice, handling secretions normally. Neck: Trachea midline. Cardiovascular: Well-perfused distal extremities. Regular rate and rhythm Respiratory: Nonlabored respiration. Clear lungs bilaterally. Gastrointestinal: Nondistended abdomen. Soft nontender. Mild left CVA tenderness. Musculoskeletal: No edema. Moving all 4 extremities spontaneously. Skin: Normal for age and race, grossly normal temperature and turgor. No acute rash. Neurologic: Alert and appropriate, no apparent acute deficits. Psychiatric: Mood and manner are appropriate. Grooming and personal hygiene are appropriate. Related Data Home Medications Medication Instructions Recorded Confirmed multivitamin 1 tab PO DAILY 07/18/17 04/30/23 cephalexin 500 mg capsule 500 mg PO BID 04/30/23 04/30/23 cholecalciferol (vitamin D3) 50 50 mcg PO DAILY 04/30/23 04/30/23 mcg (2,000 unit) capsule (Vitamin D3) Allergies Allergy/AdvReac Type Severity Reaction Status Date / Time fluconazole [From Diflucan] Allergy Intermediate Skin Rash Verified 04/30/23 12:04 Sulfa (Sulfonamide Allergy swells up Verified 04/30/23 12:04 Antibiotics) [facility] All Active Problems (Updated 04/30/23 @ 14:36 by Joseph Ruiz MD) DISH (diffuse idiopathic skeletal hyperostosis) (Acute) Hearing loss (Acute) Oral candidiasis (Acute) Tongue lesion (Acute ~01/2023) Tongue abnormality (Acute) Intertrigo (Acute) Cellulitis (Acute) Blepharitis (Chronic) Colorectal polyps (Acute ~07/03/18) 07/04, one tubular adenoma, repeat in 5-10 years Obstructive sleep apnea hypopnea, mild (Chronic ~10/2016) perfers oral appliance vs C-PAP Atrial fibrillation (Chronic ~02/2017) Dr. Garcia director of advertising sales Bradycardia (Chronic) Dr. Garcia director of advertising sales Heart palpitations (Chronic) Dr. Garcia director of advertising sales S/P colonoscopy (Acute ~07/03/18) Hematospermia (Acute 05/06/17) Medical History (Updated 04/30/23 @ 14:36 by Joseph Ruiz MD) Atrial fibrillation with tachycardic ventricular rate Surgical History (Updated 02/04/23 @ 14:53 by Junie Ceja RN) History of biopsy R lateral tongue, excisional Bx History of esophagogastroduodenoscopy (EGD) H/O vasectomy History of hand surgery History of back surgery (~2005) S/P ablation of atrial fibrillation (~01/2018) Family History Mother Thyroid disease Father Heart disease takes eliquis Social History Smoking/Tobacco Use Status: Current every day Tobacco Type: e-cigarettes Smokeless tobacco user: dissolvable tobacco Smoking risk assessment performed?: Yes Alcohol Intake: current Alcohol Intake frequency: 0-2 drinks per day Alcohol type: wine Drug use: Occasionally Substance use type: marijuana Household members: spouse and family Housing: house Number of Children: 2 Communication Needs: None Education Level: college Do you need help understanding health information?: Never 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 Sexually active: Yes Do you think of yourself as: straight/heterosexual Current gender identity: male What is your relationship status?: Panel score (0-1 are the most socially isolated patients): 1 What type of physical activity do you participate in: none Special rhea needs: No Seatbelt use: always Drive intox or ride w/intox 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: No Working smoke detector in home: Yes Fire extinguisher in home: Yes Carbon monox detector in home: Yes Do you feel safe at home: Yes Do you feel safe in your relationship?: Yes Medical Decision Making Quality:SDOH Health Related Social Needs: No Data to Display Discharge Plan Disposition Patient Disposition: Home Discharge Details Clinical Impression: DISH (diffuse idiopathic skeletal hyperostosis) Primary Care Provider: Óscar Patel ED Provider: Joseph Ruiz Home Meds and New Rx's Prescriptions: Continued multivitamin 1 EACH capsule 1 tab PO DAILY cephalexin 500 mg capsule 500 mg PO BID Patient Comments: TAKE ONE CAPSULE BY MOUTH TWICE A DAY FOR 10 DAYS cholecalciferol (vitamin D3) [Vitamin D3] 50 mcg (2,000 unit) capsule 50 mcg PO DAILY Discharge Instructions Additional Instructions: You are seen in the emergency department for your back pain. You are found to have some thickening in your skeletal bones in your back which could be explaining her symptoms. You have no signs of any kidney stones. No signs of pneumonia. Please follow-up with your primary care provider next week. You are receiving a referral for physical therapy. Please return to the emergency department if you develop chest pain or shortness of breath. For your pain please take medications as follows: 1. Take acetaminophen (Tylenol), 1,000 mg (two 500 mg tabs) every 6 hours [2. Take ibuprofen (Advil), 400 mg every 6 hours.] Stand Alone Forms: Physical Therapy Referral Discharge Data Discharge Date/Time-TO BE ENTERED AT DEPARTURE: 04/30/23 14:52
[2023-04-30 12:01] VITALS: BP 134/72; PULSE 94; RESP 18; TEMP 36.5; O2SAT 96
--- NOTE | 2023-04-30 12:15 | DI.RAD_ITS ---
Exam(s) XR CHEST 2V PA LATERAL EXAM: XR CHEST 2V PA LATERAL CLINICAL HISTORY: Left-sided chest pain. TECHNIQUE: 2D digital imaging was performed. COMPARISON: No exams were available for comparison FINDINGS: 2 views: Heart size is normal. The mediastinum is not widened. Lungs are clear. No infiltrates nor pleural effusions. IMPRESSION: No acute pulmonary findings. DATA REPOSITORY: RADIATION DOSE DELIVERED:
[2023-04-30 12:20] VITALS: RESP 18
--- NOTE | 2023-04-30 12:52 | DI.VRAD_ITS ---
PROCEDURE INFORMATION: Exam: XR Chest Exam date and time: 04/30/2023 12:37 PM Age: 58 years old Clinical indication: Other: Left sided chest pain TECHNIQUE: Imaging protocol: Radiologic exam of the chest. Views: 2 views. COMPARISON: CR CHEST 2 VIEWS PA,LAT 02/25/2017 9:36 AM FINDINGS: Lungs: Unremarkable. No consolidation. Pleural spaces: Unremarkable. No pleural effusion. No pneumothorax. Heart/Mediastinum: Unremarkable. No cardiomegaly. Bones/joints: Degenerative changes in the thoracic spine. Rounded density in the left paraspinous location at the level of 7th rib, unchanged in comparison to 2017. This may represent focal osteophyte or benign bone lesion. IMPRESSION: No acute findings. Dictated and Authenticated by: Geovany Rao MD. Ordering:MITRA Ruiz MD
--- NOTE | 2023-04-30 13:10 | DI.CT_ITS ---
Exam(s) CT CHEST/ABD/PEL WO EXAM: CT CHEST/ABD/PEL WO CLINICAL HISTORY: Left flank pain history of ureterolithiasis, abnormal chest xray. TECHNIQUE: Imaging Protocol: Axial computed tomography images with coronal and sagittal reformatted images were created and reviewed CONTRAST MATERIAL: Intravenous: none Oral: None COMPARISON: CT CT RENAL COLIC WO from 06/15/2022 CR,XR XR CHEST 2V PA LATERAL from 04/30/2023 FINDINGS: CHEST: LUNGS: No infiltrates nor pleural effusions. No concerning lung nodules. No findings in trachea and mainstem bronchi. No bronchiectasis. MEDIASTINUM: No obvious hilar nor mediastinal adenopathy. Visualized thyroid unremarkable. CARDIAC: Heart size is normal. There is no pericardial effusion.Caliber of the thoracic aorta is wit hin normal limits. OSSEOUS: No significant osseous lesions.No fractures but there are DISH-type changes in the lower tho racic/upper lumbar spine levels.. ABDOMEN: There is no ascites. LIVER: Liver is diffusely hypodense implying steatosis, as previously present. No ominous focal hepa tic lesions identified. No dilated intrahepatic ducts. GALLBLADDER/BILIARY: No obvious gallbladder pathology. CBD is not dilated. PANCREAS: No evidence of obvious pancreatic mass nor dilatation of the pancreatic duct. SPLEEN: Spleen is not enlarged. No obvious intrasplenic lesions. ADRENALS: There are no significant adrenal masses. KIDNEYS: No calculi nor hydronephrosis. No obvious solid renal masses. No cysts evident. ABDOMINAL AORTA: Abdominal aorta is not enlarged. LYMPH NODES: There is no retroperitoneal nor para-aortic adenopathy. ABDOMINAL WALL/GI: No evidence of significant anterior abdominal wall nor inguinal hernia. No evidence of bowel obstruction. PELVIS: LYMPH NODES: There is no intrapelvic nor inguinal adenopathy. GI: No evidence of appendicitis.No evidence of sigmoid diverticulitis. URINARY BLADDER: No calculi nor obvious masses evident REPRODUCTIVE: Prostate size upper normal. Seminal vesicles unremarkable. OSSEOUS: No fractures. Degenerative disc disease and facet arthropathy in the lower lumbar spine not ed. IMPRESSION: 1. No significant acute findings in the chest, abdomen, and pelvis 2. Hepatic steatosis again noted. No discrete focal hepatic lesions. No ascites. No splenomegaly. RADIATION DOSE DELIVERED: 1,806.17mGy.cm Total DLP DATA REPOSITORY: All CT scans at this facility are submitted to the National Radiology Data Registry (NRDR) Dose Index Registry (DIR) with the [employer] ([employer]). RADIATION OPTIMIZATION: All CT scans at this facility use at least one of these dose optimization te chniques: automated exposure control; mA and/or kV adjustment per patient size (includes targeted exa ms where dose is matched to clinical indication); or iterative reconstruction.
--- NOTE | 2023-04-30 13:15 | DI.CT_ITS ---
Exam(s) CT THORACIC LUMBAR SPINE WO EXAM: CT THORACIC LUMBAR SPINE WO CLINICAL HISTORY: Flank pain abnormal chest x-ray. TECHNIQUE: Imaging Protocol: Axial computed tomography images with coronal and sagittal reformatted images were created and reviewed. CONTRAST MATERIAL: Intravenous: Omnipaque 350 Contrast volume:structured data in ml Contrast route:I V - Oral: yes / no COMPARISON: CT CT CHEST/ABD/PEL WO from 04/30/2023 FINDINGS: THORACIC SPINAL COLUMN: There is no evidence of fracture or listhesis. Multilevel calcification in t he anterior longitudinal ligament with DISH-type characteristic noted in the lower thoracic and upper lumbar spines. No significant facet arthropathy. No facet malalignment. LUMBOSACRAL SPINAL COLUMN: No evidence of acute fracture, listhesis, nor pars defects. DISH changes involving the lower thoracic-upper are lumbar spine. There is evidence of chronic degenerative disc disease at L4-5 level. Partial fusion across L5-S1 level noted. No compromise of the central canal. Visualized sacrum appears intact. There is no ankylosis of the sacroiliac joints. IMPRESSION: No evidence of acute fractures in the thoracic and lumbar spine RADIATION DOSE DELIVERED: 1,806.17mGy.cm Total DLP DATA REPOSITORY: All CT scans at this facility are submitted to the National Radiology Data Registry (NRDR) Dose Index Registry (DIR) with the [employer] ([employer]). RADIATION OPTIMIZATION: All CT scans at this facility use at least one of these dose optimization te chniques: automated exposure control; mA and/or kV adjustment per patient size (includes targeted exa ms where dose is matched to clinical indication); or iterative reconstruction.
--- NOTE | 2023-04-30 14:17 | DI.VRAD_ITS ---
PROCEDURE INFORMATION: Exam: CT Chest Without Contrast; Diagnostic Exam date and time: 04/30/2023 1:30 PM Age: 58 years old Clinical indication: Other: Flank pain, abnormal chest xray TECHNIQUE: Imaging protocol: Diagnostic computed tomography of the chest without contrast. 3D rendering (Not supervised by radiologist): MIP and/or 3D reconstructed images were created by the technologist. Radiation optimization: All CT scans at this facility use at least one of these dose optimization techniques: automated exposure control; mA and/or kV adjustment per patient size (includes targeted exams where dose is matched to clinical indication); or iterative reconstruction. COMPARISON: CR XR CHEST 2V PA LATERAL 04/30/2023 12:37 PM FINDINGS: Lungs: Unremarkable. No consolidation. No masses. Pleural spaces: Unremarkable. No pneumothorax. No pleural effusion. Heart: Unremarkable. No cardiomegaly. No pericardial effusion. Coronary arteries: Mild coronary artery calcification. Lymph nodes: Unremarkable. No enlarged lymph nodes. Vasculature: Unremarkable. No aortic aneurysm. Bones/joints: Degenerative changes in the thoracic spine with bulky anterior osteophytes consistent with DISH. There is also focal prominent ossification of left 6 costovertebral junction, likely representing remote injury or heterotopic ossification. Notably this produces the smoothly marginated benign-appearing density seen on chest radiograph. No acute bony abnormality. Soft tissues: Unremarkable. IMPRESSION: No acute findings. PROCEDURE INFORMATION: Exam: CT Abdomen And Pelvis Without Contrast Exam date and time: 04/30/2023 1:30 PM Age: 58 years old Clinical indication: Other: Flank pain, abnormal chest xray TECHNIQUE: Imaging protocol: Computed tomography of the abdomen and pelvis without contrast. 3D rendering (Not supervised by radiologist): MIP and/or 3D reconstructed images were created by the technologist. Radiation optimization: All CT scans at this facility use at least one of these dose optimization techniques: automated exposure control; mA and/or kV adjustment per patient size (includes targeted exams where dose is matched to clinical indication); or iterative reconstruction. COMPARISON: CT RENAL COLIC WO 06/15/2022 9:15 PM FINDINGS: Liver: Hepatic steatosis. Gallbladder and bile ducts: Normal. No calcified stones. No ductal dilation. Pancreas: The pancreas is unremarkable. Spleen: The spleen is unremarkable. Adrenal glands: The adrenal glands are unremarkable. Kidneys and ureters: No hydronephrosis or nephrolithiasis. No ureteral dilatation. Stomach and bowel: No evidence of bowel obstruction. No pericolonic inflammatory stranding. Appendix: No evidence of appendicitis. Intraperitoneal space: Unremarkable. No free air. No significant fluid collection. Vasculature: Unremarkable. No abdominal aortic aneurysm. Lymph nodes: Unremarkable. No enlarged lymph nodes. Urinary bladder: No focal wall thickening of the urinary bladder. Reproductive: Unremarkable as visualized. Bones/joints: Lower lumbar degenerative disc disease and facet arthropathy. Mild stenosis at L4-L5. Mild bilateral SI joint degenerative change. Soft tissues: Unremarkable. IMPRESSION: No acute findings. Dictated and Authenticated by: Geovany Rao MD. Ordering:MITRA Ruiz MD
--- NOTE | 2023-04-30 14:21 | DI.VRAD_ITS ---
PROCEDURE INFORMATION: Exam: CT Thoracic Spine Without Contrast Exam date and time: 04/30/2023 1:30 PM Age: 58 years old Clinical indication: Other: Flank pain abnormal chest x-ray TECHNIQUE: Imaging protocol: Computed tomography of the thoracic spine without contrast. COMPARISON: CT CHEST/ABD/PEL WO 04/30/2023 1:30 PM FINDINGS: Bones/joints: Alignment is normal. There is diffuse degenerative disc disease. Bulky anterior osteophytes are seen consistent with DISH. Prominence left 6th costovertebral joint likely representing heterotopic ossification or remote injury. Similar appearance right 4th costovertebral joint. No fracture. Soft tissues: Unremarkable. IMPRESSION: No acute bony abnormality. PROCEDURE INFORMATION: Exam: CT Lumbar Spine Without Contrast Exam date and time: 04/30/2023 1:30 PM Age: 58 years old Clinical indication: Other: Flank pain abnormal chest x-ray TECHNIQUE: Imaging protocol: Computed tomography of the lumbar spine without contrast. COMPARISON: CT CHEST/ABD/PEL WO 04/30/2023 1:30 PM FINDINGS: Bones/joints: Alignment is normal. No fracture or bony destructive lesion. Bulky anterior osteophytes across the L3-L4, L4-L5, L5-S1. Facet arthropathy L4-L5 and L5-S1. Mild canal stenosis at L4-L5. Neural foraminal narrowing L4-L5 and L5-S1 bilaterally, left side greater than right. Soft tissues: Unremarkable. IMPRESSION: No acute findings. Dictated and Authenticated by: Geovany Rao MD. Ordering:MITRA Ruiz MD
== END 2023-04-30 14:52 | disposition home or self-care (01) ==
PROVIDERS: Emergency Provider Emergency Medicine; PCP Family Medicine
DX: M48.15 Ankylosing hyperostosis [Forestier], thoracolumbar region (principal); I48.91 Unspecified atrial fibrillation; F17.290 Nicotine dependence, other tobacco product, uncomplicated
CPT/HCPCS: 71250; 99285; 71046; 72128; 72131; 74176; 99284

== ENCOUNTER 2024-04-09 02:37 | Outpatient (CLI) | payer BC, SELFPAY ==
[2024-04-09 15:39] LABS: Abs Immature Grans 0.04 10^3/uL (0.0-0.06); Absolute Basophil Count 0.05 10^3/uL (0.0-0.2); Absolute Eosinophil Count 0.15 10^3/uL (0.0-0.7); Absolute Monocyte Count 0.86 10^3/uL (0.1-0.8); Absolute Neutrophil Count 6.43 10^3/uL (1.2-6.7); Basophils % 0.5 %; Eosinophils % 1.6 %; HCT 39.7 % (40.0-50.0); HGB 13.8 g/dL (13.5-17.5); Immature Grans % 0.4 %; Lymphocytes % 20.1 %; MCH 31.8 pg (27.0-33.0); MCHC 34.8 % (32.0-36.0); MCV 92 fL (80-95); MPV 10.2 fL (8.0-11.0); Monocytes % 9.1 %; Neutrophils % 68.3 %; Platelet Count 184 10^3/uL (130-400); RBC 4.34 10^6/uL (4.36-5.78); RDW 12.7 % (11.8-14.1); RDW-SD 42.4 fL; WBC 9.43 10^3/uL (4.4-10.8)
[2024-04-09 16:34] LABS: ALT 48 U/L (16-63); AST 30 U/L (15-37); Albumin 3.9 g/dL (3.4-5.0); Alkaline Phosphatase 114 U/L (46-116); Anion Gap 8.8 mmol/L (3-11); BUN 18 mg/dL (7-18); Bilirubin, Total 0.35 mg/dL (0.2-1.0); CO2 29.2 mmol/L (21.0-32.0); CREATININE 1.2 mg/dL (0.70-1.30); Calcium 9.4 mg/dL (8.5-10.1); Calculated LDL 134 mg/dL (<100); Chloride 106 mmol/L (98-107); Cholesterol 207 mg/dL (<200); Estimated GFR 70.53 (mL/min/1.73m2); Glucose 101 mg/dL (74-106); HDL Cholesterol 48 mg/dL (40-60); Potassium 3.9 mmol/L (3.5-5.1); Sodium 144 mmol/L (136-145); Total Protein 8.3 g/dL (6.4-8.2); Triglyceride 126 mg/dL (<150)
== END 2024-04-09 02:38 | disposition home or self-care (01) ==
LOC: LBO 02:37
PROVIDERS: PCP Family Medicine; Referring Provider Family Medicine; Visit Provider Family Medicine
DX: Z13.6 Encounter for screening for cardiovascular disorders (principal)
CPT/HCPCS: 36415; 80053; 80061; 85025